=== PATIENT | female | born 1985 | race Caucasian/White ===

== ENCOUNTER → 2016-05-10 | Outpatient (CLI) | payer MEDICARE ==
[~2016-05-10] MED LIST: ESTRACE 1 MG TAB1 MG PO; LITHIUM CARBON300 M3 PO; TRILEPTAL300 MG PO
== END ==
LOC: EMI 13:45
DX: R51 Headache (principal)
CPT/HCPCS: 70551

== ENCOUNTER → 2016-06-14 | Outpatient (CLI) | payer MEDICARE | LOC: LAB 15:51 | DX: Z51.81 Encounter for therapeutic drug level monitoring (principal); F31.32 Bipolar disorder, current episode depressed, moderate; Z79.899 Other long term (current) drug therapy | CPT/HCPCS: 36415; 80178 ==

== ENCOUNTER → 2016-06-17 | Outpatient (CLI) | payer MEDICARE | LOC: LBRF 14:40 | DX: R19.7 Diarrhea, unspecified (principal) | CPT/HCPCS: 82270; 87045; 87046; 87177 ==